=== PATIENT | female | born 1985 | race Caucasian/White ===

== ENCOUNTER 2016-12-18 10:12 | Emergency (ER) | payer SELFPAY ==
[~2016-12-18] VITALS: Ht 167.6 cm; Wt 93.0 kg
[2016-12-18 10:19] VITALS: BP 128/84
[2016-12-18] MEDS ORDERED: EPINEPHrine HCL 1 MG/1 ML AMP SC ONE (12:45)
[2016-12-18] MEDS ORDERED: methylPREDNISolone SOD SUCC 125 MG/2 ML VL IM ONE (12:45)
== END 2016-12-18 13:14 | disposition home or self-care (01) ==
LOC: ER 10:12
DX: T78.40XA Allergy, unspecified, initial encounter (principal); R21 Rash and other nonspecific skin eruption; F41.9 Anxiety disorder, unspecified; X58.XXXA Exposure to other specified factors, initial encounter; Y92.9 Unspecified place or not applicable
CPT/HCPCS: 96372; 99284; J0171; J2930